=== PATIENT | female | born 1970 | race Caucasian/White ===

== ENCOUNTER 2016-09-14 12:05 | Observation (INO) | payer OTHER ==
[~2016-09-14] VITALS: Ht 162.6 cm; Wt 86.6 kg
[~2016-09-14 12:05] MED LIST: ASPIR-LOW81 MG PO; CLOBEX59 M1 TP; CLONAZEPAM SL; CLONAZEPAM0.25 MG PO; CYTOMEL25 MCG PO; DAILY VITE1 EAC1 PO; FISH OIL 1,0001 EAC7 PO; IMITREX50 MG PO; LAMICTAL100 MG PO; LAMICTAL200 MG PO; LITHIUM CARBON300 M1 PO; LITHIUM CARBON300 MG PO; LO-DOSE ASPIRIN81 M1 PO; XANAX0.25 MG PO
[2016-09-14 12:59] LABS: HEMATOCRIT 37.5 % (36.0-46.0); MCH 29.3 PG (29.0-34.0); MCHC 33.6 G/DL (30.0-36.0); MCV 87.2 FL (83-99); MEAN PLAT.VOLUME 9.8 uM^3 (9.5-12.4); PLATELET COUNT 247 K/uL (156-360); RBC DIS.WIDTH-CV 13.1 % (11.8-14.6); RBC DIS.WIDTH-SD 41.1 % (39-53); WHITE BLOOD COUNT 8.2 K/uL (4.1-10.2)
[2016-09-14 13:11] LABS: CHLORIDE 110 mEq/L (99-109); POTASSIUM 4.7 mEq/L (3.7-5.4); SODIUM 141 mEq/L (136-147)
[2016-09-14 13:12] LABS: GLUCOSE 108 mg/dL (70-99)
[2016-09-14 13:14] LABS: ANION GAP 5 MEQ/L (2-14)
[2016-09-14 13:16] LABS: GFR ESTIMATE (CALCULATED) > 59 mL/min/
[2016-09-14 13:17] LABS: UREA NITROGEN (BUN) 9 mg/dL (9-23)
[2016-09-14 13:20] LABS: TROP-I INTERPRETATION NEGATIVE; TROPONIN-I < 0.01 ng/mL (0.0-0.30)
[2016-09-14] MEDS ORDERED: CLONAZEPAM0.5 MG PO (15:18)
[2016-09-14 15:42] VITALS: BP 109/64
[2016-09-14 15:58] LABS: HDL CHOLESTEROL 33 MG/DL (Desirable>=50); LDL CHOLESTEROL 91 mg/dL (Desirable<100); NON-HDL CHOLESTEROL 125 mg/dL (Desirable<160); SAMPLE HEMOLYSIS CHECK 0; SAMPLE ICTERIC CHECK 0; SAMPLE LIPEMIA CHECK 0; TOTAL CHOLESTEROL 158 mg/dL (Desirable<200); TRIGLYCERIDES 170 MG/DL (Normal: <150)
[2016-09-14 16:49] LABS: Estimated Average Glucose 108 mg/dL (70-123); HEMOGLOBIN A1c (GLYCOHEMOGLOB) 5.4 % HGB (Below 5.7)
[2016-09-14 19:20] VITALS: BP 108/67
[2016-09-14 20:10] LABS: Estimated Average Glucose 105 mg/dL (70-123); HEMOGLOBIN A1c (GLYCOHEMOGLOB) 5.3 % HGB (Below 5.7)
[2016-09-14 20:31] LABS: TROP-I INTERPRETATION NEGATIVE; TROPONIN-I < 0.01 ng/mL (0.0-0.30)
[2016-09-14 23:43] VITALS: BP 115/58
[2016-09-15 02:02] LABS: TROP-I INTERPRETATION NEGATIVE; TROPONIN-I < 0.01 ng/mL (0.0-0.30)
[2016-09-15 04:23] VITALS: BP 97/62
[2016-09-15 06:32] VITALS: BP 113/57
[2016-09-15] MEDS ORDERED: LO-DOSE ASPIRIN81 M2 PO (10:51)
== END 2016-09-15 11:53 | disposition home or self-care (01) ==
LOC: EME 12:05 → EDOF 14:11 → 5WEST 14:11 → EDOF 14:24 → 5WEST 15:35
PROVIDERS: Internal Medicine
DX: R07.89 Other chest pain (principal); F31.9 Bipolar disorder, unspecified; F41.8 Other specified anxiety disorders; F22 Delusional disorders; F43.10 Post-traumatic stress disorder, unspecified; Z83.3 Family history of diabetes mellitus; Z83.49 Family history of other endocrine, nutritional and metabolic diseases; Z88.0 Allergy status to penicillin; Z88.1 Allergy status to other antibiotic agents
CPT/HCPCS: 71020; 80048; 80061; 80178; 83036; 84484; 85027; 93005; 99281; 99284; G0378; J1650